=== PATIENT | male | born 1970 | race Caucasian/White ===

== ENCOUNTER 2018-08-18 19:49 | Emergency (ER) | payer OTHER ==
[2018-08-18] MEDS ORDERED: TDAP ADULT 0.5 ML INJ (BOOSTRIX) IM ONE (20:41)
--- NOTE | 2018-08-18 21:08 | EDPHY ---
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 He denies significant headache. There is no loss of consciousness. The patient denies any acute numbness or weakness. Tetanus shot is not up-to- date. REVIEW OF SYSTEMS: Neuro: no headache, numbness, weakness Musculoskeletal: as above Skin: As above - Personal History Current Tetanus/Diphtheria Vaccine: Yes Tetanus Vaccine Date: last 10 years - Medical/Surgical History Hx Asthma: No Hx Chronic Respiratory Disease: No Hx Diabetes: No Hx Cardiac Disease: No Hx Renal Disease: No Hx Cirrhosis: No Hx Alcoholism: No Hx HIV/AIDS: No Hx Splenectomy or Spleen Trauma: No Other PMH: healthy per pt - Social History Smoking Status: Never smoked - Physical Exam Exam: General: No acute distress Head: 5 cm laceration noted on the vertex of the scalp, no galea involvement Neck: No midline tenderness to palpation Neuro: GCS 15 Constitutional: Initial Vital Signs Temperature (C) 36.3 C 08/18/18 19:52 Heart Rate 80 08/18/18 19:52 Respiratory Rate 18 08/18/18 19:52 Blood Pressure 155/91 H 08/18/18 19:52 O2 Sat (%) 95 08/18/18 19:52 O2 Delivery Mode Room Air Allergies/Adverse Reactions: No Known Allergies Allergy (Unverified 03/26/18 09:52) Home Medications: Medication Instructions Recorded NK [No Known Home Meds] 03/26/18 Medical Decision Making Procedures: Procedure: Laceration repair. Verbal consent was obtained from the patient. The 5 cm laceration on the scalp was anesthetized using lidocaine with epinephrine. The wound was irrigated per protocol, draped and explored to its base with a gloved finger. There were no deep structures involved. The wound was repaired with gonzales. The wound repair was simple. The procedure was performed by myself. ED Course/Re-evaluation: The patient's wound was closed with gonzales. Plan for staple removal in 10 days. - Data Points Medications Given: Discontinued Medications Diphtheria/Tetanus/Acell Pertussis (Boostrix) 0.5 ml IM .ONCE ONE Stop: 08/18/18 20:42 Last Admin: 08/18/18 20:44 Dose: 0.5 ml Departure - Departure Disposition: Home, Routine, Self-Care Clinical Impression: Scalp laceration Condition: Good Instructions: Laceration (ED) Additional Instructions: 1. Return to the ED in 10 days for staple removal. 2. Tylenol and ibuprofen as needed for pain 3. Return to the ED sooner for any pain, redness, swelling or fever.
[2018-08-18 21:34] VITALS: BP 136/91
== END 2018-08-18 21:33 | disposition home or self-care (01) ==
PROC: 0HQ0XZZ Repair Scalp Skin, External Approach (ICD-10-PCS; principal; 2018-08-18)
DX: S01.01XA Laceration without foreign body of scalp, initial encounter (principal); Z23 Encounter for immunization; W22.8XXA Striking against or struck by other objects, initial encounter; Y92.818 Other transport vehicle as the place of occurrence of the external cause; Y93.9 Activity, unspecified; Y99.0 Civilian activity done for income or pay